=== PATIENT | male | born 1970 | race Caucasian/White ===

== ENCOUNTER 2016-12-18 03:35 | Emergency (ER) | payer MEDICARE ==
[2016-12-18 03:51] VITALS: TEMP 98.4; BMI 28.0
[2016-12-18] MEDS ORDERED: NS 1,000 ML IV ONE (04:00)
[2016-12-18] MEDS ORDERED: MORPHINE 4 MG/ML INJECTION IV ONE (04:00)
[2016-12-18] MEDS ORDERED: ONDANSETRON HCL 4 MG/2 ML VIAL IV ONE (04:00)
--- NOTE | 2016-12-18 04:02 | EDPRACDOC ---
- General Information Chief Complaint: Headache Stated Complaint: MIGRAINE Time Seen by Provider: 12/18/16 03:49 Information Source: Patient Mode Of Arrival: Car Home Medications: Home Medications Ondansetron [Zofran Odt] 4 mg PO Q6H PRN #10 tab.monsterdis 12/18/16 Rizatriptan Benzoate [Maxalt [employer]] 10 mg PO DAILY #20 tab.epifanio 12/18/16 Allergies/Adverse Reactions: Allergies Allergy/AdvReac Type Severity Reaction Status Date / Time No Known Allergies Allergy Verified 12/18/16 03:49 - History of Present Illness Onset: 11:30 pm HPI: PT HAS A MIGRAINE THAT HE'S HAD SINCE [age]. PT HAS A HX OF MIGRAINES, BUT HAS NOT HAD ONE IN A FEW MONTHS. PT HAS NOT VOMITED, BUT FEELS NAUSEOUS. THIS IS HIS TYPICAL H/A. Location: Reports: Generalized Pain Quality: Reports: Severe, Like Previous Headaches Associated Signs and Symptoms: Reports: Chronic Headaches, Nausea/Vomiting, Vision Changes ED Past Medical History - Patient Medical History Neurological History: Reports: Migraine Psychological History: Denies: Depression Surgical History: Reports: Appendectomy - Social Medical History Smoking Status: Heavy tobacco smoker (5 or more cigarettes/day or daily pipe/ cigar) ETOH: None Substance Abuse: None Lives In: Home EDM Review of Systems - Review of Systems ROS Negative Except as Marked: Yes All systems reviewed and were negative except as marked Neurological: Headache - Physical Exam Constitutional: Alert (Awake), No apparent distress Oriented to: Time, Person, Place Last recorded Vital Signs: Last Vital Signs Temp 98.4 F 12/18/16 03:50 Pulse 88 12/18/16 03:50 Resp 20 12/18/16 03:50 BP 197/103 H 12/18/16 03:50 Pulse Ox 97 12/18/16 03:50 Oxygen Pulse Oxygen Saturation 97 O2 Device Room Air Oxygen Flow Rate Fraction of Inspired Oxygen ( FIO2) - HEENT Head: Normal ( normocephalic) Eye Exam: Normal (PERRL, EOMI, Sclera white) Oropharynx: Normal (Pharynx:Moist without exudate,Gums-no swelling) ENT EAC: Normal TMJ: Normal Nose: No Symptoms Reported (septum midline) Neck: Normal (FROM, trachea at midline) - Respiratory/Cardiovascular Respiratory: Normal - CTA (BBS clear to auscultation without adventitious sounds ) Cardiovascular: Normal (RRR without murmur, gallop or rub) - GI Auscultation: Normal (NABS) Palpation: Normal (Soft,No rebound or guarding, non distended) Tenderness: Non tender Carvajal's Sign: Negative - Musculoskeletal Back: Normal (Non-Tender) Extremities: Normal (Normal tone, Pulses 2+ No cyanosis or edema, FROM) - Integumentary Skin: Normal, Warm, Dry Lymphatics: Normal (no adenopathy) - Neurologic Memory Impaired: Normal Motor Function: Normal (Normal tone, Pulses 2+ No cyanosis or edema, FROM) Cranial Nerve: Normal (CN II-X11 intact sensation, strength 5/5) Cerebellar: Normal Mood Description: Normal Thought: Coherent Perception: Normal - Re-evaluation Re-evaluation 1 Re-evaluation Time: 05:13 (MUCH BETTER) Decision Time to Discharge: 05:13 - Departure Yes I personally saw and evaluated the patient. Disposition: Home Condition: Fair Final Diagnosis: Migraine Instructions: Migraine Headache (ED) Education/Counseling Given To: Patient Education/Counseling Given Regarding: Diagnosis, Treatment, Follow Up Referrals: None,No Provider [Primary Care Provider] - One Week Greg Arita MD [Staff Physician] - One Week Prescriptions: New Ondansetron [Zofran Odt] 4 mg PO Q6H PRN #10 tab.rapdis PRN Reason: Nausea/Vomiting Rizatriptan Benzoate [Maxalt Brazer [employer]] 10 mg PO DAILY #20 tab.rapdis
[2016-12-18] MEDS ORDERED: HYDROmorphone 1 MG INJECTION IV ONE (04:50)
[2016-12-18] MEDS ORDERED: HYDROmorphone 1 MG INJECTION ONE (04:56)
[2016-12-18 05:51] VITALS: BP 166/92; PULSE 75
== END 2016-12-18 05:50 | disposition home or self-care (01) ==
LOC: ED 03:35
DX: G43.909 Migraine, unspecified, not intractable, without status migrainosus (principal)
CPT/HCPCS: 96361; 96374; 96375; 99283; J1170; J2270; J2405